=== PATIENT | male | born 1940 | race Two or more races ===

== ENCOUNTER 2018-10-25 12:29 | Inpatient (IN) ==
--- NOTE | 2018-10-25 14:50 | Progress Note ---
Addendum entered and electronically signed by RICHARD Kasper 10/25/18 15:01: Hold Xarelto for possible need for PPM or AICD placement. Original Note: Subjective Date: 10/25/18 Time: 14:46 Principal diagnosis: Pre-syncope Interval history: 78-year-old white male admitted from the office for recurrent cardiomyopathy with pre-syncope symptoms. Echocardiogram today showed ejection fraction of 20- 25%. Patient is known to have normal coronary arteries. Patient does relate progressive shortness of breath and lower cavity edema over the last few days. EKG today showed sinus bradycardia with ventricular ectopy. Exam - *Routine HEENT Exam Head: Present: normocephalic Eye: Present: EOMI, PERRL ENT: Present: mucous membranes moist - *Routine Respiratory Exam Present: decreased breath sounds. Absent: accessory muscle use, rales, rhonchi, wheezes - *Routine Cardiovascular Exam Present: RRR, bradycardia. Absent: murmur, gallop, rubs - *Routine Extremities Exam Present: edema. Absent: calf tenderness - *Routine Neurological Exam Present: alert, oriented X3, moving all extremities Progress Note: A&P (1) Nonischemic cardiomyopathy Status: Acute Current Visit: Yes (2) Acute decompensated heart failure Status: Acute Current Visit: Yes (3) Pre-syncope Status: Acute Current Visit: Yes (4) Ventricular ectopy Status: Acute Current Visit: Yes (5) SOB (shortness of breath) Status: Chronic Current Visit: No (6) Sinus bradycardia Status: Chronic Current Visit: No Assessment and Plan for All Diagnoses:: Patient is admitted for observation overnight with reinstitution of standard therapy for cardiology with decompensated congestive heart failure. Patient will be on telemetry to monitor for recurrent bradycardia and/or ventricular ectopy with possible consideration of AICD placement or pacemaker placement if needed. Patient's cardiomyopathy did improve in the past on combination of beta-terry and CAMILEL/ARB therapy, but due to symptomatic hypotension patient was discontinued on those medications and started on calcium channel terry for control of his history of atrial fibrillation. He continues on Xarelto therapy. Cardizem therapy will be discontinued at this time with reinstitution of Coreg and lisinopril.
--- NOTE | 2018-10-25 17:08 | Cardiology Report ---
INDICATIONS FOR THE TEST: Chest pain CA echo doppler complete PROCEDURE: 2-D M-mode and color Doppler study INDICATIONS FOR THE TEST: Chest pain COPD Heart Murmur Tobacco Smoking Palpitations Fatigue Syncope Edema+ Hypertension+Diabetes Mellitus Rheumatic Fever SOB MOLINA+Obesity Hyperlipidemia Family History HD Additional History Afib, MR PATIENT INFORMATION HEIGHT: 72 WEIGHT: 194 GENDER: Male B/P: 146/83 2-D/M-MODE INTERPRETATION: 2-D MEASUREMENTS OBSERVED VALUES IN CMS Right Ventricular Dimension (RVDd) 2.2 Interventricular Septum (Thickness)(IVsd) 1.1 Left Ventricular Internal Dimensions(LVIDd) 5.8 Left Ventricular Posterior Wall (Thickness)(LVPWd) 1.1 Aortic Root 3.1 Aortic Cusp Separation 2.0 Left Atrial Dimensions (LAD) 4.6 2D 1. Left atrium is moderately enlarged, left ventricle is mildly dilated, left ventricle wall thickness is upper limit of the normal, severely reduced left ventricular systolic function, visually estimated ejection fraction of 20-25%, left ventricle is globally hypokinetic. 2. The right atrium is moderately enlarged. Right ventricle is normal size and contractility. 3. The aortic valve is thickened and calcified leaflet continue to display mobility. 4. The mitral and tricuspid valve leaflets are minimally thickened. 5. The pulmonic valve is poorly present. 6. No significant pericardial effusion noted. DOPPLER INTERROGATION: Doppler interrogation of the aortic, mitral and tricuspid valvular presence of mild aortic, moderate mitral and moderate tricuspid regurgitation, calculated right ventricular systolic pressure is 45 mmHg consistent with moderate pulmonary hypertension. Diastolic parameters are inconclusive. CONCLUSION: 1. Moderate biatrial enlargement, dilated left ventricle, severely reduced left ventricular systolic function, visually estimated ejection fraction 20-25%, left ventricle is globally hypokinetic. Diastolic parameters are inconclusive. 2. Moderate mitral and tricuspid regurgitation, calculated right ventricular systolic pressure is 45 mmHg consistent with moderate pulmonary hypertension. Mild aortic insufficiency seen. 3. No significant pericardial effusion noted.
[2018-10-26 06:42] LABS: Anion Gap 9.9 mEq/L (5-15); Calcium 8.6 mg/dL (8.5-10.1); Potassium 3.9 mmoL/L (3.5-5.1)
--- NOTE | 2018-10-26 08:05 | Progress Note ---
Addendum entered and electronically signed by RICHARD Kasper 10/26/18 14:19: Loop recorder placed without complications. Pt could be discharged home today on the following cardiac meds: coreg 6.25 mg BID digoxin 0.125 mg daily lasix 40 mg daily spironolactone 25 mg daily lisinopril 2.5 mg daily Xarelto 15 mg daily Follow up with us on monday next week with BMP that morning. Original Note: Subjective Date: 10/26/18 Time: 08:03 Principal diagnosis: Pre-syncope Interval history: 78-year-old white male in bed in no distress. Denies any chest pain, pressure or tightness. Still with significant lower extremity edema. Review of telemetry shows multifocal PVCs with an single 6 beat run of ventricular tachycardia noted. Upon further questioning, the patient adamently denies any episodes of passing out or near syncope type symptoms. He relates claustrophobic anxiety when in the shower and in closets or close spaces. If he is able to get out of those areas and move, the symptoms resolve. Exam Vital signs and Labs for Last 24 Hours: Temp Pulse Resp BP Pulse Ox 98.8 F 83 16 118/65 95 10/26/18 04:00 10/26/18 04:00 10/26/18 04:00 10/26/18 04:00 10/26/18 04:00 Laboratory Results - last 24 hr 10/26/18 05:37: Sodium 146 H, Potassium 3.9, Chloride 108 H, Carbon Dioxide 32, Anion Gap 9.9, BUN 20 H, Creatinine 1.27, Estimated Creat Clear 61, Estimated GFR 55 L, Est GFR ( Amer) 67, Glucose 96, Calcium 8.6, Magnesium 1.9 I & O for Last 24 hours: Intake & Output 10/23/18 10/24/18 10/25/18 10/26/18 11:59 11:59 11:59 11:59 Intake Total 360 / 360 Output Total 1625 / 1625 Balance -1265 / -1265 Weight 191 lb 8 oz - *Routine HEENT Exam Head: Present: normocephalic Eye: Present: EOMI, PERRL ENT: Present: mucous membranes moist - *Routine Neck Exam Present: supple. Absent: JVD, carotid bruit - *Routine Respiratory Exam Present: CTA bilaterally. Absent: accessory muscle use, rales, rhonchi, wheezes - *Routine Cardiovascular Exam Present: RRR. Absent: murmur, gallop, rubs - *Routine Extremities Exam Present: edema. Absent: calf tenderness - *Routine Neurological Exam Present: alert, oriented X3, moving all extremities Progress Note: A&P (1) Nonischemic cardiomyopathy Status: Acute Current Visit: Yes (2) Acute decompensated heart failure Status: Acute Current Visit: Yes (3) Pre-syncope Status: Acute Current Visit: Yes (4) Ventricular ectopy Status: Acute Current Visit: Yes (5) SOB (shortness of breath) Status: Chronic Current Visit: No (6) Sinus bradycardia Status: Chronic Current Visit: No Assessment and Plan for All Diagnoses:: Pt is tolerating carvedilol and lisinopril therapy but still with muli-focal PVC's and non-sustained VTach. Discussed with Dr. James and EP Dairy Manager (Dr. Viet Guzman), with multi- focal PVC's and non-sustained VTach in a patient with a non-ischemic Cardiomyopathy and presumed pre-syncopal symptoms, it has been recommended to proceed with ICD implantation. HOWEVER, NOW THAT THE PATIENT HAS CLARIFIED HIS SYMPTOMS DUE TO ANXIETY AND CLAUSTROPHOBIC IN NATURE, WE WILL NOT PROCEED WITH ICD IMPLANT. INSTEAD WE WILL CONTINUE MEDICAL THERAPY AND IMPLANT A LOOP RECORDER TO MONITOR FOR ARRHYTHMIAS WHILE WAITING 90 DAYS TO SEE IF HIS CARDIOMYOPATHY IMPROVES. Pt understands and agrees to proceed with ILR placement today. He should be able to be discharged home later today.
--- NOTE | 2018-10-26 08:07 | Pharmacy Consult Notes ---
[facility] Pharmacy VTE Monitoring - Patient Demographics Admission date: 10/25/18 Report Date: 10/26/18 Time: 08:06 Allergies/Adverse Reactions: Patient Allergies codeine Allergy (Verified 10/25/18 10:23) spironolactone [From Aldactone] Allergy (Verified 10/25/18 10:23) gynecomastia Height: 1.88 m Weight: 86.863 kg Patient Problems: Current Active Problems Nonischemic cardiomyopathy (Acute) Acute decompensated heart failure (Acute) Pre-syncope (Acute) Ventricular ectopy (Acute) - VTE Risk Labs: VTE Related Lab Results BUN 20 mg/dL (7-18) H 10/26/18 05:37 Creatinine 1.27 mg/dL (0.70-1.30) 10/26/18 05:37 Estimated Creat Clear 61 mL/min (50-200) 10/26/18 05:37 Was VTE Risk Assessment Performed: Yes VTE Score: 1 VTE Risk Level: Very Low Risk Clinical Trial Participant: No - Prophylaxis VTE Prophylaxis Ordered?: Yes Types of VTE Prophylaxis: TEDS Knee High Location of Applied Device: Refused
--- NOTE | 2018-10-26 08:55 | History & Physical Report ---
*Admission Date: 10/25/18 *Chief complaint: Syncope *History of present illness: 78-year-old male admitted from the office for recurrent cardiomyopathy with pre- syncope symptoms for a few months but worsening. Echocardiogram today showed ejection fraction of 20-25%. Patient states progressive shortness of breath and lower extremity edema over the last few days. Patient admitted for cardiac workup. [facility] History I have reviewed the patient's past medical history: Yes Medical History: Reports:: Anxiety, Atrial Fibrillation, Congestive Heart Failure, Depression, Hyperlipidemia, Hypertension, Kidney Stones, Palpitations Denies:: Cancer, Diabetes Mellitus Type 1, Diabetes Mellitus Type 2, MRSA *Have you ever received a pneumonia vaccine?: Yes *Have you received a flu vaccine this season?: Yes Laterality Cases: Left: Total Hip Replacement, Bilateral: Arthroscopy Knee Other Surgeries: Yes: Angioplasty, Splenectomy Amputation: No Fractures: No - *Social History Educational Level: Completed College Smoking Status: Never smoker Alcohol Intake: never Alcohol Intake Frequency:: holidays/special occasions only Substance Use Type: denies use *Occupational Status:: retired, disabled Housing: house Household Members: spouse *Travel in the last 8 weeks: None - Psychiatric History Expresses thoughts of harming self/others: None Suicide Plan Description: No Plan Pschychiatric History:: Reports:: Anxiety, Depression Family Hx:: Diabetes Review of Systems - Review of Systems Review of systems:: pertinent systems reviewed and negative unless documented below - Constitutional Reports weakness, Denies body ache(s) - Eyes Denies change in vision - ENT Denies facial pain - *Cardiovascular Reports shortness of breath, Reports irregular heart rhythm, Reports foot swel ling, Denies chest pain with activity - *Respiratory Reports shortness of breath - *Gastrointestinal Denies nausea, Denies vomiting - *Genitourinary Denies urinary frequency - *Musculoskeletal Denies neck pain, Denies stiffness - Integumentary/Breasts Denies rash - *Neurologic Reports dizziness, Reports weakness - Psychiatric Denies anxiety - Endocrine Denies flushing - Hematologic/Lymphatic Denies enlarged lymph nodes - Allergic/Immunologic Denies lip swelling Meds Home Medications Medication Instructions Recorded Confirmed Type lorazepam 1 mg tablet 1 mg PO HSP PRN 01/03/18 10/26/18 History Carvedilol [Carvedilol 6.25mg Tab] 6.25 mg PO BID 10/25/18 10/25/18 History Digoxin 125 mcg PO DAILY 10/25/18 10/26/18 History Lisinopril [Lisinopril 2.5mg Tab] 2.5 mg PO DAILY 10/25/18 10/25/18 History Rivaroxaban [Xarelto] 15 mg PO BID 10/25/18 10/25/18 History bupropion HCl 75 mg tablet 75 mg PO DAILY tab 10/25/18 10/25/18 History duloxetine 60 mg capsule,delayed 60 mg PO DAILY cap 10/25/18 10/25/18 History release furosemide 40 mg tablet 40 mg PO DAILY 10/25/18 10/26/18 History olanzapine 2.5 mg tablet 1.25 mg PO HS tab 10/25/18 10/26/18 History Allopurinol [Allopurinol 300mg 300 mg PO DAILY 10/26/18 10/26/18 History tablet] Tamsulosin HCl [Flomax 0.4mg 0.4 mg PO DAILY 10/26/18 10/26/18 History capsule] Allergies Allergy/AdvReac Type Severity Reaction Status Date / Time codeine Allergy Verified 10/25/18 10:23 spironolactone Allergy gynecomasti Verified 10/25/18 10:23 [From Aldactone] a Exam Vital signs and Labs for Last 24 Hours: Temp Pulse Resp BP Pulse Ox 98.7 F 70 16 144/68 H 95 10/26/18 08:00 10/26/18 08:00 10/26/18 08:00 10/26/18 08:00 10/26/18 08:00 Laboratory Results - last 24 hr 10/26/18 05:37: Sodium 146 H, Potassium 3.9, Chloride 108 H, Carbon Dioxide 32, Anion Gap 9.9, BUN 20 H, Creatinine 1.27, Estimated Creat Clear 61, Estimated GFR 55 L, Est GFR ( Amer) 67, Glucose 96, Calcium 8.6, Magnesium 1.9 I & O for Last 24 hours: Intake & Output 10/23/18 10/24/18 10/25/18 10/26/18 11:59 11:59 11:59 11:59 Intake Total 360 / 360 Output Total 1625 / 1625 Balance -1265 / -1265 Weight 191 lb 8 oz - Constitutional no acute distress - *Routine HEENT Exam Head: Present: normocephalic Eye: Present: EOMI, PERRL ENT: Present: mucous membranes moist - *Routine Neck Exam Present: supple. Absent: lymphadenopathy - *Routine Respiratory Exam Present: CTA bilaterally - *Routine Cardiovascular Exam Present: irregular rhythm - *Routine Abdominal Exam Present: soft, normoactive bowel sounds. Absent: tenderness - *Routine Extremities Exam Absent: cyanosis, clubbing, edema - *Routine Skin Exam Present: warm. Absent: rash - *Routine Neurological Exam Present: alert, oriented X3 - Routine Psychiatric Exam Present: normal affect Assessment and Plan (1) Nonischemic cardiomyopathy Current visit: Yes Status: Acute Category: Medical Code(s): I42.8 - Other cardiomyopathies (2) Acute decompensated heart failure Current visit: Yes Status: Acute Category: Medical Code(s): I50.9 - Heart failure, unspecified (3) Pre-syncope Current visit: Yes Status: Acute Category: Medical Code(s): R55 - Syncope and collapse (4) Ventricular ectopy Current visit: Yes Status: Acute Category: Medical Code(s): I49.3 - Ventricular premature depolarization (5) SOB (shortness of breath) Current visit: No Status: Chronic Category: Medical Code(s): R06.02 - Shortness of breath (6) Sinus bradycardia Current visit: No Status: Chronic Category: Medical Code(s): R00.1 - Bradycardia, unspecified - Assessment and plan all Dx Assessment and Plan for all problems:: Rounded with Dr. Mckenzie all orders per Magaly
--- NOTE | 2018-10-26 14:18 | Procedure Note ---
[facility] Loop Recorder Date: 10/26/18 Time: 14:13 Procedure Performed:: Implantable loop recorder placement Indication:: Cardiomyopathy Ventricular arrhythmias Technique:: After informed consent obtained, patient's left upper chest/pectoral area was prepped and draped in sterile fasion. Lidocaine 1% was used for local anesthesia and an incision was made using the preformed scalpel. The preloaded apparatus was used to insert the loop recorder and after confirming the voltage was adequate for detection, the incision was closed with steri-strips and pressure dressing and tegaderm placed. Patient tolerated the procedure without complications. Impression:: Successful placement of loop recorder Serial Number:: [id number] Plan:: Routine post op care
--- NOTE | 2018-10-26 17:29 | Discharge Summary ---
General - General Admission date:: 10/25/18 Discharge date: 10/26/18 HPI HPI: 78-year-old male admitted from the office for recurrent cardiomyopathy with pre- syncope symptoms for a few months but worsening. Echocardiogram today showed ejection fraction of 20-25%. Patient states progressive shortness of breath and lower extremity edema over the last few days. Patient admitted for cardiac workup. Hospital Course Hospital Course: echo:CONCLUSION: 1. Moderate biatrial enlargement, dilated left ventricle, severely reduced left ventricular systolic function, visually estimated ejection fraction 20-25%, left ventricle is globally hypokinetic. Diastolic parameters are inconclusive. 2. Moderate mitral and tricuspid regurgitation, calculated right ventricular systolic pressure is 45 mmHg consistent with moderate pulmonary hypertension. Mild aortic insufficiency seen. 3. No significant pericardial effusion noted. loop recorder, cardiology consult Objective Vital signs: Temp Pulse Resp BP Pulse Ox 98.2 F 61 18 149/83 H 99 10/26/18 15:55 10/26/18 15:55 10/26/18 15:55 10/26/18 15:55 10/26/18 15:55 no acute distress - *Routine HEENT Exam Head: Present: normocephalic Eye: Present: PERRL ENT: Present: mucous membranes moist - *Routine Respiratory Exam Present: CTA bilaterally - *Routine Cardiovascular Exam Present: irregular rhythm - *Routine Abdominal Exam Present: soft, normoactive bowel sounds - *Routine Extremities Exam Present: full ROM - *Routine Skin Exam Present: intact - *Routine Neurological Exam Present: alert, oriented X3 - Routine Psychiatric Exam Present: normal affect Results Labs on day of discharge: Labs from last 24 hours 10/26/18 05:37 Sodium 146 H Potassium 3.9 Chloride 108 H Carbon Dioxide 32 Anion Gap 9.9 BUN 20 H Creatinine 1.27 Estimated Creat Clear 61 Estimated GFR 55 L Est GFR ( Amer) 67 Glucose 96 Calcium 8.6 Magnesium 1.9 - Additional Comments rounded with jace all orders per jace DS: Diagnosis - Discharge Diagnosis (1) Nonischemic cardiomyopathy Status: Acute (2) Acute decompensated heart failure Status: Acute (3) Pre-syncope Status: Acute (4) Ventricular ectopy Status: Acute (5) SOB (shortness of breath) Status: Chronic (6) Sinus bradycardia Status: Chronic Discharge Plan - Patient Discharge Instructions ACTIVITY: Continue current activity DIET: continue same diet Patient Instructions: DI for Syncope in Adults (Fainting), DI for Cardiomyopathy - Follow up Plan Follow up with: Merritt James MD [Staff Physician] - 1 week Disposition: Home, Self-Usp Medications: Home Medications Medication Instructions Recorded Confirmed Type lorazepam 1 mg tablet 1 mg PO BID 01/03/18 10/26/18 History Digoxin 125 mcg PO DAILY 10/25/18 10/26/18 History Rivaroxaban [Xarelto] 15 mg PO HS 10/25/18 10/26/18 History duloxetine 60 mg capsule,delayed 60 mg PO BID cap 10/25/18 10/26/18 History release furosemide 40 mg tablet 40 mg PO DAILY 10/25/18 10/26/18 History Albuterol Sulfate [Albuterol HFA 2 puffs IH Q6HP PRN 10/26/18 10/26/18 History Inhaler] Allopurinol [Allopurinol 300mg 300 mg PO DAILY 10/26/18 10/26/18 History tablet] Carvedilol [Carvedilol 6.25mg Tab] 6.25 mg PO BID 10/26/18 10/26/18 History Carvedilol [Coreg 6.25mg 6.25 mg PO BID 30 Days #30 tablet 10/26/18 Rx Tablet] Digoxin [Digoxin 0.125mg Tablet] 125 mcg PO DAILY 30 Days #30 tablet 10/26/18 Rx Fluticasone Propionate 1 spray NOSTRIL-B BID 10/26/18 10/26/18 History Lisinopril [Lisinopril 2.5mg Tab] 2.5 mg PO DAILY 10/26/18 10/26/18 History Lisinopril [Zestril 2.5mg Tablet] 2.5 mg PO DAILY 30 Days #30 tablet 10/26/18 Rx Mirtazapine 30 mg PO HS 10/26/18 10/26/18 History OLANZapine [Olanzapine] 1.25 mg PO BID 10/26/18 10/26/18 History OLANZapine [Olanzapine] 5 mg PO HS 10/26/18 10/26/18 History Tamsulosin HCl [Flomax 0.4mg 0.4 mg PO DAILY 10/26/18 10/26/18 History capsule] buPROPion HCl [Wellbutrin 75mg 75 mg PO DAILY 10/26/18 10/26/18 History Tablet] risperiDONE [Risperdal 1mg Tablet] 1 mg PO HS 10/26/18 10/26/18 History risperiDONE [Risperidone] 0.5 mg PO BID 10/26/18 10/26/18 History Prescriptions/Medication Reconciliation: New Duloxetine HCl [Cymbalta 30mg capsule] 60 mg PO BID capsule. Mirtazapine [Remeron 15mg tablet] 30 mg PO HS tablet OLANZapine [Zyprexa 5mg tablet] 1.25 mg PO BID tablet OLANZapine [Zyprexa 5mg tablet] 5 mg PO HS tablet risperiDONE [Risperdal 1mg Tablet] 1 mg PO HS tablet risperiDONE [Risperdal 0.5mg tablet] 0.5 mg PO BID tablet Rivaroxaban [Xarelto 15mg tablet] 15 mg PO QPMWM tablet Spironolactone [Aldactone 25mg Tab] 25 mg PO DAILY tablet Carvedilol [Coreg 6.25mg Tablet] 6.25 mg PO BID 30 Days #30 tablet Digoxin [Digoxin 0.125mg Tablet] 125 mcg PO DAILY 30 Days #30 tablet Lisinopril [Zestril 2.5mg Tablet] 2.5 mg PO DAILY 30 Days #30 tablet LORazepam [Ativan 1mg tablet] 1 mg PO BID tablet Tamsulosin HCl [Flomax 0.4mg capsule] 0.4 mg PO HS cap.er.24h Continue duloxetine 60 mg capsule,delayed release 60 mg PO BID cap lorazepam 1 mg tablet 1 mg PO BID furosemide 40 mg tablet 40 mg PO DAILY Digoxin 125 mcg PO DAILY Tamsulosin HCl [Flomax 0.4mg capsule] 0.4 mg PO DAILY risperiDONE [Risperidone] 0.5 mg PO BID buPROPion HCl [Wellbutrin 75mg Tablet] 75 mg PO DAILY OLANZapine [Olanzapine] 1.25 mg PO BID Albuterol Sulfate [Albuterol HFA Inhaler] 2 puffs IH Q6HP PRN PRN Reason: Shortness Of Breath Mirtazapine 30 mg PO HS Fluticasone Propionate 1 spray NOSTRIL-B BID Lisinopril [Lisinopril 2.5mg Tab] 2.5 mg PO DAILY Rivaroxaban [Xarelto] 15 mg PO HS Allopurinol [Allopurinol 300mg tablet] 300 mg PO DAILY risperiDONE [Risperdal 1mg Tablet] 1 mg PO HS OLANZapine [Olanzapine] 5 mg PO HS Carvedilol [Carvedilol 6.25mg Tab] 6.25 mg PO BID
== END 2018-10-26 17:50 | disposition home or self-care (01) | DRG 260 ==
LOC: RT 12:29 → 2ND 12:29 → OBSVTOIN 14:41
PROVIDERS: ADMIT Emergency Medicine; ATTEND Emergency Medicine

== ENCOUNTER → 2018-12-05 13:29 | Outpatient (CLI) | payer MEDICARE, SELFPAY ==
--- NOTE | 2018-12-05 13:39 | CT_ITS ---
CT head/brain wo con HISTORY: Confusion, altered mental status, altered level consciousness ITS.REASON: rule out normal pressure hydrocephaus ORDERING PHYSICIAN: Andreina Grady PATIENT AGE: 78 years COMPARISON: None TECHNIQUE: Axial images obtained without contrast. Brain and bone windows reviewed. All CT scans at the facility use one or more dose reduction, viz: automated exposure control, ma/kV adjustment per patient size (including targeted exams where dose is matched to indication, i.e. head), or iterative reconstruction technique. FINDINGS: There is generalized atrophy. No ventriculomegaly. No intracranial hemorrhage midline shift or mass effect. There is mild prominence of the subdural space in the right frontal and temporal region suggesting a small subdural hygroma. No acute subdural hemorrhage is evident. No midline shift. No acute calvarial findings. Postsurgical changes of the left occipital bone from prior craniectomy with metallic mesh in place. IMPRESSION: 1. No acute intracranial findings. 2. No evidence of normal pressure hydrocephalus. 3. Mild prominence of the subdural space in the right frontal and temporal region could relate to a small subdural hygroma without mass effect. Subdural space at this region measures approximately 8 mm.
[2018-12-09 18:29] LABS: Vitamin B1 190.6 nmol/L (66.5-200.0)
== END ==
PROVIDERS: PCP Family Medicine; Visit Provider Nurse Practitioner Family
DX: R26.89 Other abnormalities of gait and mobility (principal); R41.0 Disorientation, unspecified; Z87.898 Personal history of other specified conditions; F41.9 Anxiety disorder, unspecified
CPT/HCPCS: 36415; 70450; 84425

== ENCOUNTER → 2019-01-24 10:59 | Outpatient (CLI) | payer MEDICARE, SELFPAY ==
--- NOTE | 2019-01-24 11:05 | CA_ITS ---
PROCEDURE: 2-D M-mode and color Doppler study INDICATIONS FOR THE TEST: Chest pain COPD Heart Murmur Tobacco Smoking Palpitations Fatigue+ Syncope Edema Hypertension+Diabetes Mellitus Rheumatic Fever SOB+MOLINA+Obesity Hyperlipidemia Family History HD Additional History DIZZINESS, CHF, AF, PHTN, EF 20-25% 10/25/18 PATIENT INFORMATION HEIGHT:72 WEIGHT:178 GENDER: Male B/P:109/59 2-D/M-MODE INTERPRETATION: 2-D MEASUREMENTS OBSERVED VALUES IN CMS Right Ventricular Dimension (RVDd) 3.1 Interventricular Septum (Thickness)(IVsd) 1.0 Left Ventricular Internal Dimensions(LVIDd) 5.4 Left Ventricular Posterior Wall (Thickness)(LVPWd) 0.9 Aortic Root 3.5 Aortic Cusp Separation 1.7 Left Atrial Dimensions (LAD) 4.1 2D 1. Left atrium is mildly enlarged, left ventricle is mildly dilated, there is mild concentric left ventricular hypertrophy, severely reduced left ventricular systolic function, visually estimated ejection fraction approximately 20%, left ventricle appears to be globally hypokinetic in this study, however superimposed segmental wall motion abnormality cannot be excluded. 2. The right atrium and right ventricle are moderately enlarged with normal contractility. 3. The aortic valve is thickened and calcified leaflet continue to display mobility. 4. The mitral and tricuspid valve leaflets are minimally thickened. 5. The pulmonic valve is poorly present. 6. No significant pericardial effusion noted. DOPPLER INTERROGATION: Doppler interrogation of the aortic, mitral and tricuspid valvular presence of moderate mitral and mild tricuspid regurgitation, calculated right ventricular systolic pressure 34 mmHg, inferior vena cava is not well visualized, diastolic parameters are inconclusive, there is mild aortic insufficiency also seen. The aortic outflow velocities is reduced, suggestive of low cardiac output state. CONCLUSION: 1. Biatrial enlargement, dilated left ventricle, severely reduced left ventricular systolic function, visually estimated ejection fraction 20%, left ventricle is globally hypokinetic, superimposed segmental wall motion abnormality cannot be entirely excluded. Diastolic parameters are inconclusive. 2. Enlarged right ventricle with normal contractility. 3. Mild aortic, moderate mitral and tricuspid regurgitation, calculated right ventricular systolic pressure 34 mmHg, inferior vena cava is not well visualized 4. No significant pericardial effusion noted.
== END ==
PROVIDERS: Visit Provider Internal Medicine
DX: I42.8 Other cardiomyopathies; I42.0 Dilated cardiomyopathy; I48.0 Paroxysmal atrial fibrillation; I11.0 Hypertensive heart disease with heart failure; I27.20 Pulmonary hypertension, unspecified; I34.0 Nonrheumatic mitral (valve) insufficiency; I49.1 Atrial premature depolarization; I49.3 Ventricular premature depolarization; I50.23 Acute on chronic systolic (congestive) heart failure; R00.0 Tachycardia, unspecified; R06.02 Shortness of breath; R42 Dizziness and giddiness; R55 Syncope and collapse; R60.0 Localized edema; R94.31 Abnormal electrocardiogram [ECG] [EKG]; G47.33 Obstructive sleep apnea (adult) (pediatric)
CPT/HCPCS: 93306

== ENCOUNTER → 2019-06-04 10:33 | Outpatient (CLI) | payer MEDICARE, SELFPAY ==
[2019-06-04 13:58] LABS: Anion Gap 16.3 mEq/L (5-15); Blood Urea Nitrogen 14 mg/dL (7-18); Calcium 8.9 mg/dL (8.5-10.1); Carbon Dioxide 28 mmol/L (21.0-32.0); Chloride 103 mmol/L (98-107); Creatinine,Serum 1.59 mg/dL (0.70-1.30); Estimated Glomerular Filt Rate 43 ml/min (>60); GFR (African American) 51 ML/MIN (>60); Glucose 127 mg/dL (74-106); Sodium 143 mmol/L (136-145)
[2019-06-04 14:08] LABS: Potassium 4.3 mmoL/L (3.5-5.1)
== END ==
PROVIDERS: Visit Provider Physician Assistant
DX: E87.6 Hypokalemia (principal)
CPT/HCPCS: 36415; 80048

== ENCOUNTER → 2019-07-17 10:37 | Outpatient (CLI) | payer MEDICARE, SELFPAY ==
--- NOTE | 2019-07-17 10:41 | CA_ITS ---
APPROVED REPORT EXAM: Comprehensive 2D, Doppler, and color-flow Echocardiogram Gallery Intern: Monique Zavaleta RVT Ht: 5 ft 3 in Wt: 167lbs BSA: 1.79 BP: 88/75 mmHg Indications: CM,A-fib,Pul HTN,Dizziness, Syncope,AICD,EF of 20% on 01/24/19 2D Dimensions IVSd 1.33 cm M: 0.6-1.2 LVEF (Visual) 21.60 % PWd 0.73 cm M: 0.6 - 1.2 LVDd 6.69 cm M: 4.2 - 5.9 LVDs 6.01 cm M: 2.5 - 4.0 LVOT 2.07 cm (M/F) 1.5-2.5 M-Mode Dimensions LA Diam 3.40 cm (1.9-4.0) LVDd 6.69 cm (3.5-5.7) Ao Diam 3.20 cm (2.0-3.7) LVDs 5.77 cm (3.5-5.7) AV Cusp 1.20 cm (1.5-2.6) IVSd 1.13 cm (0.6-1.1) PWd 0.84 cm (0.6-1.1) EF (Teich) 31.40% FS 13.60% EDV (Teich) 240.00 mL ESV (Teich) 164.60 mL Left Ventricle Left atrium is mildly enlarged, left ventricle is mildly dilated, mild concentric left ventricular hypertrophy, severely reduced left ventricular systolic function, visually estimated ejection fraction approximately 20%, left ventricle is globally hypokinetic. There is abnormal septal motion. No Doppler performed Right Ventricle Right atrium and right ventricle mildly enlarged with normal contractility, there is an AICD lead seen right ventricle. Aortic Valve Aortic valve is thickened and calcified leaflet on a display mobility. Mitral Valve Mitral valve leaflets are minimally thickened. Tricuspid Valve Tricuspid valve is grossly normal. Pulmonic Valve Pulmonic valve is poorly visualized. Great Vessels Aortic root is normal size. Pericardium No significant pericardial effusion noted. Conclusion 1. Limited study performed, there is no color flow mapping or spectral Doppler performed. 2. Enlarged left atrium, dilated left ventricle, severely reduced left ventricular systolic function, visually estimated ejection fraction 20%, left ventricle is globally hypokinetic. 3. No significant pericardial effusion noted. Electronically signed by : Sathya Loya, 07/19/2019 13:53:53
== END ==
PROVIDERS: PCP Family Medicine; Visit Provider Internal Medicine
DX: I34.0 Nonrheumatic mitral (valve) insufficiency; I11.0 Hypertensive heart disease with heart failure; I27.20 Pulmonary hypertension, unspecified; I42.0 Dilated cardiomyopathy; I42.8 Other cardiomyopathies; I50.22 Chronic systolic (congestive) heart failure; R06.02 Shortness of breath; R42 Dizziness and giddiness; R94.31 Abnormal electrocardiogram [ECG] [EKG]; G47.33 Obstructive sleep apnea (adult) (pediatric)
CPT/HCPCS: 93308

== ENCOUNTER → 2020-05-19 10:59 | Outpatient (CLI) | payer MEDICARE, SELFPAY ==
--- NOTE | 2020-05-19 11:05 | CA_ITS ---
APPROVED REPORT EXAM: Comprehensive 2D, Doppler, and color-flow Echocardiogram Terminal Clerk: Gypsy Mcdermott CRT Ht: 6 ft 0 in Wt: 174lbs BSA: 2.01 BP: 103/56 mmHg Indications: Atrial Fibrillation, Cardiomyopathy, Hypertension/HDD 2D Dimensions LVOT 1.76 cm (M/F) 1.5-2.5 M-Mode Dimensions RVDd 3.17 cm (0.9-2.6) LVDd 5.47 cm (3.5-5.7) LVDs 4.90 cm (3.5-5.7) IVSd 1.58 cm (0.6-1.1) PWd 0.80 cm (0.6-1.1) EF (Teich) 22.50% FS 10.40% EDV (Teich) 145.60 mL ESV (Teich) 112.80 mL LV Diastology E/A Ratio 0.66 Mitral Valve MV A Velocity 83.00 (40-130 cm/s) Left Ventricle Left atrium is mildly enlarged, left ventricle is normal size, mild concentric left ventricular hypertrophy, visually estimated ejection fraction 50% with no regional wall motion abnormality, endocardial surfaces are very poorly visualized, grade 1 diastolic dysfunction seen with tissue Doppler evidence of raise left atrial pressure. Right Ventricle Right atrium and right ventricle are mildly enlarged with normal contractility, there is pacemaker or an AICD lead seen in right ventricle. Aortic Valve Aortic valve is minimally thickened and fibrosed, there is no aortic stenosis, there is trace aortic insufficiency. Mitral Valve Mitral valve is minimally thickened, there is mild mitral regurgitation. Tricuspid Valve Tricuspid valve is grossly normal, there is mild tricuspid regurgitation, tricuspid regurgitation jet velocity is inadequate for calculation of the right ventricular systolic pressure. Pulmonic Valve Pulmonic valve is poorly visualized. Great Vessels Aortic root is normal size. Pericardium No significant pericardial effusion noted. Conclusion 1. Biatrial enlargement, normal left ventricular size, mild concentric left ventricular hypertrophy, visually estimated ejection fraction 50% with no regional wall motion abnormality, grade 1 diastolic dysfunction seen with tissue Doppler evidence of raise left atrial pressure. 2. Mildly enlarged right ventricle with normal contractility. 3. Thickened and calcified aortic valve without aortic stenosis, there is trace aortic insufficiency. 4. Mild mitral and tricuspid regurgitation. 5. No significant pericardial effusion noted. Electronically signed by : Sathya Loya, 05/19/2020 18:32:13
== END ==
PROVIDERS: PCP Family Medicine; Visit Provider Internal Medicine
DX: G47.33 Obstructive sleep apnea (adult) (pediatric) (principal); I11.9 Hypertensive heart disease without heart failure; I27.20 Pulmonary hypertension, unspecified; I34.0 Nonrheumatic mitral (valve) insufficiency; I42.9 Cardiomyopathy, unspecified; I48.91 Unspecified atrial fibrillation; I50.20 Unspecified systolic (congestive) heart failure; Z95.810 Presence of automatic (implantable) cardiac defibrillator
CPT/HCPCS: 93306

== ENCOUNTER 2022-04-01 08:48 | Day surgery (SDC) | payer MEDICARE, SELFPAY ==
[2022-04-01] VITALS (11 sets, daily range): BP systolic 90–141; BP diastolic 60–92; PULSE 64–80; RESP 10–18; TEMP 36.2–43; O2SAT 91–99; BMI 24.3; BMI 25.0
[2022-04-01 09:36] LABS: Microscopic, Urine URINE MICROSCOPIC (MICROSCOPIC)
[2022-04-01 09:36] LABS: Basophils # 0.1 K/mm3 (0-0.2); Basophils % 0.9 % (0.1-2.0); Eosinophils # 0.2 K/mm3 (0.0-0.4); Eosinophils % 2.6 % (0.1-12.0); Hemoglobin 14.9 g/dL (14.1-18.0); Lymphocytes # 2.2 K/mm3 (0.7-4.5); Lymphocytes % 25.3 % (10-50); Mean Corpuscular Hemoglobin 33.3 pg (27.0-31.2); Mean Corpuscular Volume 100.8 fl (80-94); Mean Platelet Volume 8.2 fl (7.4-10.4); Monocytes # 0.8 K/mm3 (0.1-1.0); Monocytes % 8.5 % (1.7-9.3); Neutrophils # 5.6 K/mm3 (1.8-7.8); Neutrophils % 62.7 % (37.0-80.0); Platelet Count 251 K/mm3 (142-424); Red Blood Count 4.47 M/mm3 (4.60-6.20); Red Cell Distribution Width 12.8 % (11.5-17.5); White Blood Count 8.9 K/mm3 (4.8-10.8)
[2022-04-01 09:38] LABS: Chloride 107 mmol/L (98-107)
[2022-04-01 09:39] LABS: Potassium 3.5 mmoL/L (3.5-5.1); Sodium 142 mmol/L (136-145)
[2022-04-01 09:39] LABS: Appearance,Urine CLEAR (Clear); Bilirubin,Urine Negative (Negative); Blood, Urine Negative (Negative); Color,Urine YELLOW (Yellow); Glucose,Urine (UA) Negative (Negative); Ketones,Urine Negative (Negative); Leukocyte Esterase,Urine TRACE (Negative); Nitrate,Urine Negative (Negative); Protein,Urine Negative (Negative); Specific Gravity, Urine 1.025 (1.005-1.030); Urobilinogen,Urine 0.2 EU/dl (0.2)
[2022-04-01 09:41] LABS: Blood Urea Nitrogen 15 mg/dl (9-20); Creatinine Clearance Estimated 56 mL/min (50-200); Estimated Glomerular Filt Rate 53 ml/min (>60); GFR (African American) 64 ML/MIN (>60)
[2022-04-01 09:42] LABS: Anion Gap 8.5 mEq/L (5-15); Calcium 8.9 mg/dl (8.4-10.2); Carbon Dioxide 30 mmol/L (22.0-30.0); Glucose 109 mg/dl (74-100)
[2022-04-01 09:51] LABS: Bacteria,Urine Trace /lpf; Squamous Epithelial Cell,Urine Occasional #/hpf (0-5)
[2022-04-01 09:52] LABS: Hyaline Casts,Urine Occasional #/lpf (0)
--- NOTE | 2022-04-01 11:24 | P.PN_ITS ---
[facility] Anesthesia Checklist - Structural Data Admitted From: Home Planned Operative Procedure/s: cystolithopaxy Consent for Planned Operative Procedure(s) Verified: Yes - Additional verifications Anesthesia Reactions: No Hx Blood Transfusions: No Blood Transfusion Reaction: No - Airway Assessment C-Spine Mobility Assessed: Yes TMJ Mobility Assessed: Yes Dentition: Poor Dentition - Neurological Assessment Level of Consciousness: Awake, Alert, Appropriate - Anesthesia Plan Anesthesia Risk discussed: Yes Anesthesia Plan: Verified ASA Class: III Anesthesia Type: General [facility] History I have reviewed the patient's past medical history: Yes Medical History: Reports:: Anxiety, Atrial Fibrillation, Congestive Heart Failure, Depression, Hyperlipidemia, Hypertension, Internal Pacemaker, Kidney Stones, Palpitations Denies:: Cancer, Diabetes Mellitus Type 1, Diabetes Mellitus Type 2, MRSA, Seizures *Have you ever received a pneumonia vaccine?: No *Have you received a flu vaccine this season?: No Other Medical History: Denies: Blood Transfusion Reaction Anesthesia experience/problems:: none Laterality Cases: Left: ACL Repair, Total Hip Replacement, Bilateral: Arthroscopy Knee Other Surgeries: Yes: No Previous Surgery, Angioplasty, Cardiac Catheterization, Pacemaker, Splenectomy Amputation: No Fractures: No - *Social History Last grade of school completed: Some college Smoking Status: Never smoker Alcohol Intake: never Alcohol Intake Frequency:: holidays/special occasions only Substance Use Type: denies use *Occupational Status:: retired Housing: house Household Members: spouse *Travel in the last 8 weeks: None - Psychiatric History Pschychiatric History:: Reports:: Anxiety, Depression Family Hx:: Diabetes
--- NOTE | 2022-04-01 12:01 | HMH.ANESI ---
[facility] Anesthesia Record Part I Intake, IV Amount: 1,400 Estimated blood loss (mL): 0 Urine output (mL): 0 Blood Pressure: 90/60 SaO2: 94 Pulse Rate: 71 Respiratory Rate: 10 Temperature: 97.1 F Patient is:: Awake, Stable Stable to PACU at:: 12:00
--- NOTE | 2022-04-01 13:12 | PC.NURSE ---
1228-detailed report given to DAVONTE Santana 1230-pt transported to post op via stretcher w/tricia rails up and left in care of DAVONTE Santana with bed locked in lowest position, vss, pt stable
--- NOTE | 2022-04-01 16:28 | HMH.OPNOTE ---
Date of procedure: 04/01/22 Pre-op Diagnosis:: Two centimeter bladder stone Post-op Diagnosis:: Two centimeter demetrius stone in the bladder, large median lobe. Procedure performed:: Cystoscopy with the backseat with the laser lithotripsy. Surgeon:: Rylan Rothman MD REFERENCE INVESTIGATOR:: Manuel Napier Anesthesia: LMA Estimated blood loss (mL): 0 Clinical Note:: Patient is a 81-year-old white male with recent gross hematuria noted to have a 2 cm bladder stone and prostate enlargement. He presents today for urologic management. Operative findings:: 2 cm demetrius stone noted in the bladder. The prostate showed a very large median lobe. Operative note:: Patient taken to the operating room after informed consent was obtained. Was placed on the operating table in supine position and general anesthesia administered. Preoperative antibiotics and sequential compression devices placed. He was then placed into the dorsal lithotomy position and prepped draped in the standard surgical fashion. 20 Jnoes passed into the urethra and into the bladder. A 2 cm demetrius stone was noted in the bladder. Prostate was enlarged with a very large median lobe. A 500 nm laser fiber was passed through the cystoscope and the bladder stone fragmented into small pieces. The smaller of these fragments could be irrigated free the larger fragments were picked out with the rigid graspers. All stones were removed. There was a little bleeding from the median lobe afterwards and the Bugbee electrode was used to cauterize any bleeding. Patient tolerated procedure well no complications. Condition: stable Disposition: PACU Specimens:: Bladder stone Complications:: None
[2022-04-04 06:52] VITALS: BP 131/88; PULSE 75; TEMP 36.4
--- NOTE | 2022-04-04 06:52 | HMH.ANESII ---
[facility] Anesthesia Record Part II Discharge Time: 12:30 Destination: Surgical Day Care (OP Surgery) PACU nurse assessment reviewed?: Yes Patient Condition:: Good Anesthesia Complications:: None Swallowing reflex intact?: Yes Cyanosis?: No Blood Pressure: 131/88 Pulse Rate: 75 Temperature: 97.6 F Mental Status: Alert & Oriented Pain level:: 0 Nausea and/or vomitting:: None Intake, IV Amount: 0
[2022-04-15 23:05] LABS: Specimen Type Not Provided
== END 2022-04-01 13:15 | disposition home or self-care (01) ==
LOC: OR 08:50
PROVIDERS: PCP Family Medicine; Visit Provider Urology
PROC: 0TJB8ZZ Inspection of Bladder, Via Natural or Artificial Opening Endoscopic (ICD-10-PCS; CPT 52000; principal; 2022-04-01 10:30)
DX: N21.0 Calculus in bladder (principal); I11.0 Hypertensive heart disease with heart failure; I50.9 Heart failure, unspecified; I48.91 Unspecified atrial fibrillation; E78.5 Hyperlipidemia, unspecified; F41.9 Anxiety disorder, unspecified; F32.A Depression, unspecified; Z79.899 Other long term (current) drug therapy; R31.0 Gross hematuria
CPT/HCPCS: 52317; 80048; 81001; 82370; 85025; J2405

== ENCOUNTER → 2022-10-18 13:04 | Outpatient (CLI) | payer MEDICARE, SELFPAY ==
--- NOTE | 2022-10-18 13:06 | CA_ITS ---
APPROVED REPORT EXAM: Comprehensive 2D, Doppler, and color-flow Echocardiogram Density Control Puncher: Swati Huertas RT(R) Ht: 6 ft 2 in Wt: 188lbs BSA: 2.12 BP: 101/62 mmHg Indications: SOB, AICD, AFIB, KACEY, CM 2D Dimensions LVOT 1.89 cm (M/F) 1.5-2.5 LA Volume 76.20 mL LA Volume Index 35.94 mL/m2 (M/F) 16-34 M-Mode Dimensions RVDd 1.79 cm (0.9-2.6) LA Diam 3.52 cm (1.9-4.0) LVDd 5.44 cm (3.5-5.7) Ao Diam 2.83 cm (2.0-3.7) LVDs 4.44 cm (3.5-5.7) IVSd 0.91 cm (0.6-1.1) PWd 0.86 cm (0.6-1.1) EF (Teich) 37.60% FS 18.40% EDV (Teich) 143.70 mL ESV (Teich) 89.60 mL LV Diastology E Decel Time 213.00 (160-240 msec) E/A Ratio 0.9 MED E' 5.30 (< 7 cm/sec) E'/MED E' Ratio 13.68 (>14) LAT E' 5.70 (<10 cm/sec) E/LAT E' Ratio 12.72 (>14) Mitral Valve MV E Max Jerry. 73.00 (40-130 cm/s) MV A Velocity 82.00 (40-130 cm/s) E/A Ratio 0.88 MV Decel. Time 213.00 (160-240 ms) MV PHT 62.00 ms Tricuspid Valve TR P. Velocity 258.00 cm/s RAP Estimate 10.00 mmHg RVSP 36.60 mmHg Left Ventricle Left atrium is mildly enlarged, ventricular normal size mild concentric left ventricular hypertrophy, estimated ejection fraction is 45%, there is marked hypokinesis involving the basal septum and inferior wall. Diastolic parameters are inconclusive. Right Ventricle Right atrium and right ventricular normal size and contractility, there is any ICD leads in the right ventricle. Aortic Valve Aortic valve is thickened and calcified without Doppler evidence of aortic stenosis or significant aortic insufficiency. Mitral Valve Mitral valve is minimally thickened, there is mild mitral regurgitation. Tricuspid Valve Tricuspid grossly normal, there is mild tricuspid regurgitation, tricuspid regurgitation jet procedure inadequate for calculation of the right ventricular systolic pressure. Pulmonic Valve Pulmonic valve is poorly visualized. Great Vessels Aortic root is normal size. Inferior vena cava is poorly visualized. Pericardium No significant pericardial effusion noted. Conclusion 1. Mildly enlarged atrium, normal left ventricular size, mild concentric left ventricular hypertrophy, estimated ejection fraction of 45% with segmental wall motion abnormality described above, diastolic parameters are inconclusive. 2. Mild mitral and tricuspid regurgitation. 3. No significant pericardial failure. 4. Inferior vena cava is poorly visualized. Electronically signed by : Sathya Loya MD 10/18/2022 19:37:00
== END ==
PROVIDERS: PCP Family Medicine; Visit Provider Internal Medicine
DX: I42.8 Other cardiomyopathies (principal)
CPT/HCPCS: 93306

== ENCOUNTER 2022-11-15 12:52 | Observation (INO) | payer MEDICARE, SELFPAY ==
[2022-11-15 13:00] VITALS: BP 107/74; PULSE 69; RESP 21; TEMP 36.7; O2SAT 99; BMI 24.0
--- NOTE | 2022-11-15 13:16 | PC.NURSE ---
Pt arrived to the floor at this time.
--- NOTE | 2022-11-15 13:39 | EXP.CARD.CON ---
History of Present Illness History of Present Illness Consult date: 11/15/22 Requesting physician: Kwame Regalado Chief complaint: Needs device upgrade to CRTD, hx of vtach History of present illness: 82 year old white male with past medical hx of normal Cors 2017, HTN, Chronic afib a/c with xarelto, HFrEF s/p AICD, grade one diastolic dysfunction, and KACEY presented to cardiology clinic to discuss AICD upgrade to bi V device in the setting of worsening heart failure and NSVT. Patient's most recent echo shows a reduced EF of 45. Patient's recent device download shows he is V pacing more than 40% and is having frequent episodes of NSVT. The EKG in office shows a QRS > 176ms. Patient complains of dizziness and feeling lightheaded. Dr. James discussed upgrading patients AICD to a BiV device and patient is agreeable. He will be admitted overnight for observation and will undergo device upgrade tomorrow morning. [facility] Disclaimer: The information contained in this section may have been updated after the patient was seen, as this information can be updated by other users. Medical History Atrial fibrillation Dizziness SOB (shortness of breath) Surgical History AICD (automatic cardioverter/defibrillator) present Social History Smoking Status: Never smoker second hand exposure: No alcohol intake: never substance use type: denies use current occupational status: retired Travel in the last 8 weeks: None household members: spouse housing: house caffeine: Yes Review of Systems *Cardiovascular Cardiovascular: Denies chest pain and Denies dyspnea Comments: dizziness and lightheaded *Respiratory Respiratory: Denies dyspnea Exam Data for Last 24 hours Vital signs and Labs for Last 24 Hours: Temp Pulse Resp BP Pulse Ox 98.1 F 69 21 107/74 L 99 11/15/22 13:00 11/15/22 13:00 11/15/22 13:00 11/15/22 13:00 11/15/22 13:00 I & O for Last 24 hours: Intake & Output 11/12/22 11/13/22 11/14/22 11/15/22 23:59 23:59 23:59 23:59 Weight 187 lb 1 oz Constitutional Constitutional: no acute distress *Routine Respiratory Exam Respiratory: Present CTA bilaterally and symmetric chest movement *Routine Cardiovascular Exam Cardiovascular: Present RRR, Normal S1 and Normal S2 *Routine Abdominal Exam Abdominal: Present soft and normoactive bowel sounds; Absent tenderness *Routine Extremities Exam Extremities: Present full ROM and normal capillary refill; Absent edema *Routine Skin Exam Skin: Present intact, dry and warm Detailed Neck Exam: Thyroids Thyroid: Absent bruit Meds Home Medications and Allergies Home Medications Medication Instructions Recorded Confirmed Type tamsulosin 0.4 mg capsule 0.4 mg PO HS prostate 10/26/18 11/15/22 History escitalopram oxalate 20 mg tablet 20 mg PO DAILY Depression 01/24/19 11/15/22 History (Lexapro) donepezil 5 mg tablet (Aricept) 5 mg PO DAILY memory 03/11/19 11/15/22 History levothyroxine 50 mcg tablet 50 mcg PO DAILYDM hypothyroidism 09/16/19 11/15/22 History furosemide 40 mg tablet (Lasix) 40 mg PO DAILYP PRN Fluid 02/18/20 11/15/22 History digoxin 125 mcg (0.125 mg) tablet 125 mcg PO DAILY heart rate 11/15/22 11/15/22 History metoprolol succinate 25 mg 25 mg PO HS High blood pressure 11/15/22 11/15/22 History tablet,extended release 24 hr (Toprol XL) mirtazapine 15 mg tablet 15 mg PO HS appetite and mood 11/15/22 11/15/22 History potassium chloride 20 mEq 20 meq PO DAILY potassium 11/15/22 11/15/22 History tablet,extended release(part/cryst) replacement quetiapine 100 mg tablet 150 mg PO HS mood 11/15/22 11/15/22 History quetiapine 50 mg tablet 75 mg PO 0800,1300 mood 11/15/22 11/15/22 History rivaroxaban 15 mg tablet (Xarelto) 15 mg PO QPMWITHMEAL blood 11/15/22 11/15/22 History thinner/atrial
[2022-11-15 13:45] LABS: Chloride 104 mmol/L (98-107); Sodium 140 mmol/L (136-145)
[2022-11-15 13:46] LABS: Basophils # 0.1 K/mm3 (0-0.2); Basophils % 1.5 % (0.1-2.0); Eosinophils # 0.3 K/mm3 (0.0-0.4); Eosinophils % 3.5 % (0.1-12.0); Hematocrit 46.8 % (42.0-52.0); Hemoglobin 14.8 g/dL (14.1-18.0); Lymphocytes # 2.6 K/mm3 (0.7-4.5); Lymphocytes % 33.1 % (10-50); Mean Corpuscular HGB Conc 31.7 g/dL (31.8-35.4); Mean Corpuscular Hemoglobin 32.1 pg (27.0-31.2); Mean Corpuscular Volume 101.2 fl (80-94); Mean Platelet Volume 7.9 fl (7.4-10.4); Monocytes # 0.7 K/mm3 (0.1-1.0); Neutrophils # 4.1 K/mm3 (1.8-7.8); Platelet Count 304 K/mm3 (142-424); Potassium 3.9 mmoL/L (3.5-5.1); Red Blood Count 4.62 M/mm3 (4.60-6.20); Red Cell Distribution Width 12.9 % (11.5-17.5); White Blood Count 7.8 K/mm3 (4.8-10.8)
[2022-11-15 13:48] LABS: Alanine Aminotransferase 12 U/L (12-78); Albumin Level 4.2 g/dl (3.5-5.0); Albumin/Globulin Ratio 1.2 (1.1-1.8); Alkaline Phosphatase 66 U/L (38-126); Anion Gap 11.9 mEq/L (5-15); Aspartate Amino Transferase 22 U/L (17-59); Bilirubin,Total 0.5 mg/dl (0.2-1.3); Blood Urea Nitrogen 23 mg/dl (9-20); Carbon Dioxide 28 mmol/L (22.0-30.0); Creatinine Clearance Estimated 42 mL/min (50-200); Estimated Glomerular Filt Rate 39 ml/min (>60); GFR (African American) 47 ML/MIN (>60); Globulin 3.6 g/dL (1.3-3.2); Total Protein,Serum 7.8 g/dl (6.3-8.2)
[2022-11-15 13:49] LABS: Calcium 8.4 mg/dl (8.4-10.2); Glucose 113 mg/dl (74-100)
--- NOTE | 2022-11-15 13:56 | HMH.PHAINT1 ---
Pharmacy Intervention Comments: home medication list verified using lsit from pharmacy and cardiology office. Nursing will clarify
[2022-11-15 14:22] LABS: Coronavirus 19, PCR Not Detected (NotDetected); Influenza A, PCR Not Detected (NotDetected); Influenza B, PCR Not Detected (NotDetected)
--- NOTE | 2022-11-15 14:35 | PC.NURSE ---
DAVONTE Steve from [facility] called for patient update
[2022-11-15 14:53] LABS: Thyroid Stimulating Hormone 1.21 uIU/mL (0.465-4.68)
[2022-11-15 16:00] VITALS: BP 112/60; PULSE 69; RESP 18; TEMP 36.8; O2SAT 97
--- NOTE | 2022-11-15 18:55 | PC.NURSE ---
Patient rested well this shift. Denies any needs.
--- NOTE | 2022-11-15 19:08 | EXP.HP ---
History of Present Illness *Admission Date: 11/15/22 *Reason for visit:: Worsening heart failure *History of present illness: Mr. Gutiérrez is an 82-year-old gentleman who initially presented to cardiology clinic earlier today. Concern at that time for worsening heart failure with reducing ejection fraction. Currently has AICD in place. 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 Decision to admit overnight because of symptomatic state with dizziness. Cardiology consulted medicine for admission and observation overnight. Additional cardiac history as follows: Past medical hx of normal Cors 2017, HTN, Chronic afib a/c with xarelto, and KACEY. Patient's most recent echo shows a reduced EF of 45. Patient's recent device download shows he is? V pacing more than 40% and is having frequent episodes of NSVT. The EKG in office showed a QRS > 176ms. Patient complains of dizziness and feeling lightheaded. Denies jordan chest pain, nausea, vomiting, shortness of breath, confusion. No falls. [facility] Disclaimer: The information contained in this section may have been updated after the patient was seen, as this information can be updated by other users. Medical History Atrial fibrillation Dizziness SOB (shortness of breath) Surgical History AICD (automatic cardioverter/defibrillator) present Social History Smoking Status: Never smoker second hand exposure: No alcohol intake: never substance use type: denies use current occupational status: retired Travel in the last 8 weeks: None household members: spouse housing: house caffeine: Yes Review of Systems Review of Systems Review of systems (narrative): 14 point review of systems performed, pertinent positives and negatives as per HPI Meds Home Medications and Allergies Home Medications Medication Instructions Recorded Confirmed Type tamsulosin 0.4 mg capsule 0.4 mg PO HS prostate 10/26/18 11/15/22 History escitalopram oxalate 20 mg tablet 20 mg PO DAILY Depression 01/24/19 11/15/22 History (Lexapro) donepezil 5 mg tablet (Aricept) 5 mg PO DAILY memory 03/11/19 11/15/22 History levothyroxine 50 mcg tablet 50 mcg PO DAILYDM hypothyroidism 09/16/19 11/15/22 History furosemide 40 mg tablet (Lasix) 40 mg PO DAILYP PRN Fluid 02/18/20 11/15/22 History digoxin 125 mcg (0.125 mg) tablet 125 mcg PO DAILY heart rate 11/15/22 11/15/22 History metoprolol succinate 25 mg 25 mg PO HS High blood pressure 11/15/22 11/15/22 History tablet,extended release 24 hr (Toprol XL) mirtazapine 15 mg tablet 15 mg PO HS appetite and mood 11/15/22 11/15/22 History potassium chloride 20 mEq 20 meq PO DAILY potassium 11/15/22 11/15/22 History tablet,extended release(part/cryst) replacement quetiapine 100 mg tablet 150 mg PO HS mood 11/15/22 11/15/22 History quetiapine 50 mg tablet 75 mg PO 0800,1300 mood 11/15/22 11/15/22 History rivaroxaban 15 mg tablet (Xarelto) 15 mg PO QPMWITHMEAL blood 11/15/22 11/15/22 History thinner/atrial fib trazodone 50 mg tablet 50 - 100 mg PO HS Insomnia 11/15/22 11/15/22 History New Prescriptions to Start Prescriptions: Allergies Allergy/AdvReac Type Severity Reaction Status Date / Time codeine Allergy Verified 11/15/22 11:32 spironolactone Allergy gynecomasti Verified 11/15/22 11:32 [From Aldactone] a Exam Data for Last 24 hours Vital signs and Labs for Last 24 Hours: Temp Pulse Resp BP Pulse Ox 98.2 F 69 18 112/60 97 11/15/22 16:00 11/15/22 16:00 11/15/22 16:00 11/15/22 16:00 11/15/22 16:00 Laboratory Results - last 24 hr 11/15/22 13:28: SARS-CoV-2 (PCR) Not detected, Influenza A Untype (PCR) Not detected, Influenza Type B (PCR) Not detected 11/15/22 13:30: WBC 7.8, RBC 4.62, Hgb 14.8, Hct 46.8, M
[2022-11-15 19:23] VITALS: BP 126/79; PULSE 70; RESP 18; TEMP 37.1; O2SAT 100
[2022-11-16] VITALS (15 sets, daily range): BP systolic 110–132; BP diastolic 40–79; PULSE 65–86; RESP 16–19; TEMP 36.7–37.1; O2SAT 93–100; BMI 23.6
--- NOTE | 2022-11-16 06:46 | PC.NURSE ---
Pt did not voice any c/o to staff t/o night. Ambulated in room independently. NPO since midnight. Call light within reach.
[2022-11-16 06:52] LABS: Basophils # 0.1 K/mm3 (0-0.2); Eosinophils # 0.3 K/mm3 (0.0-0.4); Eosinophils % 2.7 % (0.1-12.0); Hematocrit 46.8 % (42.0-52.0); Hemoglobin 14.9 g/dL (14.1-18.0); Lymphocytes # 2.4 K/mm3 (0.7-4.5); Lymphocytes % 24.8 % (10-50); Mean Corpuscular HGB Conc 31.9 g/dL (31.8-35.4); Mean Corpuscular Hemoglobin 32.2 pg (27.0-31.2); Mean Platelet Volume 8.4 fl (7.4-10.4); Monocytes # 0.6 K/mm3 (0.1-1.0); Monocytes % 6.5 % (1.7-9.3); Neutrophils # 6.3 K/mm3 (1.8-7.8); Platelet Count 326 K/mm3 (142-424); Red Blood Count 4.63 M/mm3 (4.60-6.20); Red Cell Distribution Width 12.9 % (11.5-17.5); White Blood Count 9.6 K/mm3 (4.8-10.8)
[2022-11-16 06:58] LABS: Sodium 137 mmol/L (136-145)
[2022-11-16 07:00] LABS: Alanine Aminotransferase 13 U/L (12-78); Albumin Level 4.3 g/dl (3.5-5.0); Albumin/Globulin Ratio 1.3 (1.1-1.8); Alkaline Phosphatase 76 U/L (38-126); Anion Gap 8.7 mEq/L (5-15); Aspartate Amino Transferase 20 U/L (17-59); Bilirubin,Total 0.8 mg/dl (0.2-1.3); Blood Urea Nitrogen 23 mg/dl (9-20); Calcium 8.5 mg/dl (8.4-10.2); Carbon Dioxide 30 mmol/L (22.0-30.0); Chloride 103 mmol/L (98-107); Chol/HDL Ratio 8.2 (1-3.5); Cholesterol 288 mg/dl (140-200); Creatinine Clearance Estimated 41 mL/min (50-200); Estimated Glomerular Filt Rate 39 ml/min (>60); GFR (African American) 47 ML/MIN (>60); Globulin 3.3 g/dL (1.3-3.2); Glucose 137 mg/dl (74-100); HDL Cholesterol 35 mg/dl (40-60); Magnesium 2.2 mg/dl (1.6-2.3); Potassium 4.7 mmoL/L (3.5-5.1); Total Protein,Serum 7.6 g/dl (6.3-8.2); Triglycerides 214 mg/dl (30-150); VLDL Cholesterol 43 mg/dL (0-40)
[2022-11-16 07:11] LABS: Direct LDL Cholesterol 166.99 mg/dL (100-129)
[2022-11-16 07:30] LABS: Thyroid Stimulating Hormone 1.32 uIU/mL (0.465-4.68)
--- NOTE | 2022-11-16 08:48 | EXP.CARD.PN ---
Subjective Subjective Date: 11/16/22 Time: 08:00 Principal diagnosis: device upgrade Interval history: doing well, denies complaints. am labs reviewed. Exam Data for Last 24 hours Vital signs and Labs for Last 24 Hours: Temp Pulse Resp BP Pulse Ox 98.3 F 70 18 116/67 100 11/16/22 07:29 11/16/22 08:10 11/16/22 07:29 11/16/22 07:29 11/16/22 07:29 Laboratory Results - last 24 hr 11/15/22 13:28: SARS-CoV-2 (PCR) Not detected, Influenza A Untype (PCR) Not detected, Influenza Type B (PCR) Not detected 11/15/22 13:30: WBC 7.8, RBC 4.62, Hgb 14.8, Hct 46.8, MCV 101.2 H, MCH 32.1 H, MCHC 31.7 L, RDW 12.9, Plt Count 304, MPV 7.9, Neut % (Auto) 53.0, Lymph % (Auto) 33.1, [place] % (Auto) 9.0, Eos % (Auto) 3.5, Baso % (Auto) 1.5, Neut # (Auto) 4.1, Lymph # (Auto) 2.6, [place] # (Auto) 0.7, Eos # (Auto) 0.3, Baso # (Auto) 0.1 11/15/22 13:30: TSH 1.21 11/15/22 13:30: Sodium 140, Potassium 3.9, Chloride 104, Carbon Dioxide 28, Anion Gap 11.9, BUN 23 H, Creatinine 1.70 H, Estimated Creat Clear 42, Estimated GFR 39 L, Est GFR ( Amer) 47 L, Glucose 113 H, Calcium 8.4, Total Bilirubin 0.5, AST 22, ALT 12, Alkaline Phosphatase 66, Total Protein 7.8, Albumin 4.2, Globulin 3.6 H, Albumin/Globulin Ratio 1.2 11/16/22 06:45: WBC 9.6, RBC 4.63, Hgb 14.9, Hct 46.8, MCV 101.0 H, MCH 32.2 H, MCHC 31.9, RDW 12.9, Plt Count 326, MPV 8.4, Neut % (Auto) 65.0, Lymph % (Auto) 24.8, [place] % (Auto) 6.5, Eos % (Auto) 2.7, Baso % (Auto) 1.0, Neut # (Auto) 6.3, Lymph # (Auto) 2.4, [place] # (Auto) 0.6, Eos # (Auto) 0.3, Baso # (Auto) 0.1 11/16/22 06:45: Sodium 137, Potassium 4.7 D, Chloride 103, Carbon Dioxide 30, Anion Gap 8.7, BUN 23 H, Creatinine 1.70 H, Estimated Creat Clear 41, Estimated GFR 39 L, Est GFR ( Amer) 47 L, Glucose 137 H D, Calcium 8.5, Magnesium 2.2, Total Bilirubin 0.8, AST 20, ALT 13, Alkaline Phosphatase 76, Total Protein 7.6, Albumin 4.3, Globulin 3.3 H, Albumin/Globulin Ratio 1.3, Triglycerides 214 H, Cholesterol 288 H, LDL Cholesterol Direct 166.99 H, VLDL Cholesterol 43 H, HDL Cholesterol 35 L, Cholesterol/HDL Ratio 8.2 H, TSH 1.32 I & O for Last 24 hours: Intake & Output 11/13/22 11/14/22 11/15/22 11/16/22 23:59 23:59 23:59 23:59 Intake Total 240 / 240 Output Total 0 / 0 0 / 0 Balance 240 / 240 0 / 0 Weight 187 lb 1 oz 184 lb Constitutional Constitutional: no acute distress *Routine Respiratory Exam Respiratory: Present CTA bilaterally and symmetric chest movement *Routine Cardiovascular Exam Cardiovascular: Present RRR, Normal S1 and Normal S2 *Routine Abdominal Exam Abdominal: Present soft and normoactive bowel sounds; Absent tenderness *Routine Extremities Exam Extremities: Present full ROM and normal capillary refill; Absent edema *Routine Skin Exam Skin: Present intact, dry and warm Detailed Neck Exam: Thyroids Thyroid: Absent bruit Progress Note: A&P Assessment and plan (1) Heart failure with reduced ejection fraction: Status: Acute (2) AICD (automatic cardioverter/defibrillator) present: Status: Acute (3) HTN (hypertension): Status: Acute (4) Chronic a-fib: Status: Acute (5) On continuous oral anticoagulation: Status: Acute (6) Diastolic dysfunction: Status: Acute (7) HLD (hyperlipidemia): Status: Acute (8) KACEY (obstructive sleep apnea): Status: Acute Assessment and Plan Assessment and Plan for All Diagnoses:: HFrEF/DD grade 1/ s/p AICD- NYHA II-III -Worsening heart failure,? newly reduced EF of 45 -QRS duration > 170ms -Frequent NSVT noted on device interrogation -Plan to upgrade device to BiV aicd tomorrow morning. Dr. James discussed risks versus benefits, patient is agreeable. -BP is too low for CAMILLE/ARB. Continue Metoprolol succinate ER 25 mg po daily. Continue lasix 40mg po prn. Consider addition of jardiance and aldactone prior to dc home. -Of note, no ischemic eval since 2017. Discussed with Dr. James, will consider stress te
--- NOTE | 2022-11-16 09:24 | IR_ITS ---
APPROVED REPORT Patient Location: Inpatient English Composition Instructor: BENJY Taveras RT (R) PROCEDURES 1. Pocket Revision 2. Placement of left ventricular sensing pacing lead into the coronary sinus. 3. Permanent cardiac resynchronization therapy with ICD implantation/biventricular pacemaker. INDICATION Systolic Congestive Heart Failure, ejection <35%, Wide QRS >120ms, Lares Heart Assoication Class 3 Congestive Heart Failure Informed consent was obtained prior to the procedure. COMPLICATIONS None Estimated Blood Loss: Less than 10 mls TECHNIQUE 1% lidocaine with epinephrine used to anesthetize the left anterior aspect of the chest. Scalpel was used to make the initial cutaneous incision and to dissect down into the fascia. The generator was removed from the existing pocket. Digital manipulation was required along with intermittent usage of scalpel in order to revise the pocket. The leads were removed from the old generator. The patient was then placed in Trendelenburg position and the subclavian vein was accessed 1 time via the Selinger technique. A 9.5 Romansh sheath was placed under fluoroscopic guidance into the subclavian vein. The dilator was removed from the sheath. Under fluoroscopic guidance the coronary sinus was cannulated and confirmed with an injection of contrast. An 0.014 wire was then placed distally in the inferior posterior segment of the left ventricle via the coronary sinus and the left ventricular lead was advanced. After achieving excellent thresholds and interrogation numbers the sheath was then peeled away and the lead was then secured into place using silk suture. Ancef was used to flush the pocket and the 3 leads were attached to the SUPERVISOR CASE LOADING-D generator. The generator was then secured into place by heavy silk suture. Monocryl was used to close the subcutaneous layers while kendell were used to close the subcutaneous layers while kendell were used to close the cutaneous layer. A pressure dressing was placed and the patient was transferred to the postop holding area in stable condition for postoperative care. INTERROGATION Generator Model number: VIGILANT X4 SUPERVISOR CASE LOADING-D, G247 Generator Serial number: [id number] Atrial lead model number: INGEVITY 52CM, 7741 Atrial lead serial number: [id number] P-wave: 5.6mV Impedence: 742 ohms Threshold: 1.0V Current: 1.3mA Right Ventricular lead model number: RELIANCE 4-FRONT 59CM, 0675 Right Ventricular lead serial number: [id number] R-wave: 10mV Impedence: 562 ohms Threshold: 1.0V@0.4ms Current: 1.8mA Left Ventricular lead model number: KEVIN X4 STRAIGHT 86CM, 4671 Left Ventricular lead serial number: [id number] R-wave: 10mV Impedence: 2722 ohms Threshold: 1.5V@0.4ms (LV tip to ring) Current: 0.6mA Pacing Parameters: Mode: DDDR Base/Max Track: 70 ppm / 130 ppm ICD Thereapy Parameters: VF 200 bpm 2.5 sec., Quick Convert, 41J x 1, 41J x 1, 41J x 6 VT 170 bpm 5 sec., ATP, 41J x 1, 41J x 1, 41J x 4 No diaphragmatic stimulation at 10 volts. IMPRESSION 1. Successful Pocket Revision 2. Successful Placement of left ventricular sensing pacing lead into the coronary sinus. 3. Successful Permanent cardiac resynchronization therapy with ICD implantation/biventricular pacemaker. PLAN 1. Post op wound care, follow up office visit Electronically signed by : Merritt James MD 11/16/2022 15:47:57
[2022-11-16 11:34] LABS: Basophils # 0.1 K/mm3 (0-0.2); Basophils % 1.2 % (0.1-2.0); Eosinophils # 0.3 K/mm3 (0.0-0.4); Eosinophils % 3.2 % (0.1-12.0); Hematocrit 46.5 % (42.0-52.0); Hemoglobin 14.5 g/dL (14.1-18.0); Lymphocytes # 2.5 K/mm3 (0.7-4.5); Lymphocytes % 27.2 % (10-50); Mean Corpuscular HGB Conc 31.3 g/dL (31.8-35.4); Mean Corpuscular Hemoglobin 31.8 pg (27.0-31.2); Mean Corpuscular Volume 101.8 fl (80-94); Mean Platelet Volume 8.1 fl (7.4-10.4); Monocytes # 0.7 K/mm3 (0.1-1.0); Monocytes % 7.8 % (1.7-9.3); Neutrophils # 5.7 K/mm3 (1.8-7.8); Neutrophils % 60.5 % (37.0-80.0); Platelet Count 319 K/mm3 (142-424); Red Blood Count 4.57 M/mm3 (4.60-6.20); White Blood Count 9.3 K/mm3 (4.8-10.8)
[2022-11-16 11:40] LABS: Anion Gap 8.4 mEq/L (5-15); Blood Urea Nitrogen 25 mg/dl (9-20); Calcium 8.4 mg/dl (8.4-10.2); Carbon Dioxide 32 mmol/L (22.0-30.0); Chloride 102 mmol/L (98-107); Creatinine Clearance Estimated 41 mL/min (50-200); Estimated Glomerular Filt Rate 39 ml/min (>60); GFR (African American) 47 ML/MIN (>60); Glucose 114 mg/dl (74-100); Potassium 4.4 mmoL/L (3.5-5.1); Sodium 138 mmol/L (136-145)
--- NOTE | 2022-11-16 15:22 | XR_ITS ---
FINAL REPORT CLINICAL HISTORY: Confirm pacemaker/AID placement COMPARISON: none FINDINGS: A single portable view of the chest was obtained. Left subclavian AICD is in place. The heart size is enlarged. The mediastinum is within normal limits. There is mild left base atelectasis or scar. No pneumothorax. There are multiple chronic left rib fractures seen. IMPRESSION: Left subclavian AICD in place. Mild left base atelectasis or scar. Reviewed, Interpreted and Dictated by Cedrick Franklin III, MD Transcribed by Latasha Lynne Authenticated and [facility]
--- NOTE | 2022-11-16 15:23 | EXP.ANES.CKL ---
[facility] Disclaimer: The information contained in this section may have been updated after the patient was seen, as this information can be updated by other users. Medical History (Updated 11/16/22 @ 10:17 by Henna Roberson RN) Atrial fibrillation BPH (benign prostatic hyperplasia) Dizziness Hypothyroidism Insomnia SOB (shortness of breath) Surgical History AICD (automatic cardioverter/defibrillator) present Social History Smoking Status: Never smoker second hand exposure: No alcohol intake: never substance use type: denies use current occupational status: retired Travel in the last 8 weeks: None household members: spouse housing: house caffeine: Yes [facility] Anesthesia Checklist Patient Identification Patient Identification: Arm Band and Verbal (Name & ) Structural Data Admitted From: Inpatient Planned Operative Procedure/s: Bi Venrticular Pacemaker Upgrade Consent for Planned Operative Procedure(s) Verified: Yes Verified Documents: Surgical Consent NPO Status Verified Time NPO: 00:00 Additional verifications Anesthesia Reactions: No Hx Blood Transfusions: No Blood Transfusion Reaction: No Airway Assessment C-Spine Mobility Assessed: Yes TMJ Mobility Assessed: Yes Neurological Assessment Level of Consciousness: Awake, Alert and Appropriate Anesthesia Plan Anesthesia Risk discussed: Yes ASA Class: III Anesthesia Type: MAC
--- NOTE | 2022-11-16 15:47 | P.PN_ITS ---
Subjective *Date: 11/16/22 *Time: 15:47 Medical Exam Vital signs and Labs for Last 24 Hours: Vital Signs Temp Pulse Pulse Resp BP Pulse Ox 11/16/22 15:34 86 11/16/22 15:30 86 18 113/72 93 L 11/16/22 15:25 70 11/16/22 11:36 98.0 F 65 19 132/74 100 11/16/22 08:30 70 11/16/22 08:10 70 11/16/22 07:29 98.3 F 70 18 116/67 100 11/16/22 03:56 98.7 F 70 18 123/78 97 11/15/22 19:23 98.8 F 70 18 126/79 100 11/15/22 16:00 98.2 F 69 18 112/60 97 Intake and Output 11/15/22 11/16/22 11/16/22 23:59 07:59 15:59 Intake Total 240 / 240 Output Total 0 / 0 0 / 0 0 / 0 Balance 240 / 240 0 / 0 0 / 0 Intake: Intake, Oral Amount 240 / 240 Output: Output, Urine Amount 0 / 0 0 / 0 0 / 0 Other: Number of Voids 0 Number of Unmeasured Voids 1 1 1 Weight 83.461 kg Patient Weight 11/16/22 23:59 Weight 83.461 kg Laboratory Results - last 24 hr 11/16/22 06:45: WBC 9.6, RBC 4.63, Hgb 14.9, Hct 46.8, MCV 101.0 H, MCH 32.2 H, MCHC 31.9, RDW 12.9, Plt Count 326, MPV 8.4, Neut % (Auto) 65.0, Lymph % (Auto) 24.8, [place] % (Auto) 6.5, Eos % (Auto) 2.7, Baso % (Auto) 1.0, Neut # (Auto) 6.3, Lymph # (Auto) 2.4, [place] # (Auto) 0.6, Eos # (Auto) 0.3, Baso # (Auto) 0.1 11/16/22 06:45: Sodium 137, Potassium 4.7 D, Chloride 103, Carbon Dioxide 30, Anion Gap 8.7, BUN 23 H, Creatinine 1.70 H, Estimated Creat Clear 41, Estimated GFR 39 L, Est GFR ( Amer) 47 L, Glucose 137 H D, Calcium 8.5, Magnesium 2.2, Total Bilirubin 0.8, AST 20, ALT 13, Alkaline Phosphatase 76, Total Protein 7.6, Albumin 4.3, Globulin 3.3 H, Albumin/Globulin Ratio 1.3, Triglycerides 214 H, Cholesterol 288 H, LDL Cholesterol Direct 166.99 H, VLDL Cholesterol 43 H, HDL Cholesterol 35 L, Cholesterol/HDL Ratio 8.2 H, TSH 1.32 11/16/22 11:25: WBC 9.3, RBC 4.57 L, Hgb 14.5, Hct 46.5, MCV 101.8 H, MCH 31.8 H , MCHC 31.3 L, RDW 13.0, Plt Count 319, MPV 8.1, Neut % (Auto) 60.5, Lymph % (Auto) 27.2, [place] % (Auto) 7.8, Eos % (Auto) 3.2, Baso % (Auto) 1.2, Neut # (Auto) 5.7, Lymph # (Auto) 2.5, [place] # (Auto) 0.7, Eos # (Auto) 0.3, Baso # (Auto) 0.1 11/16/22 11:25: Sodium 138, Potassium 4.4, Chloride 102, Carbon Dioxide 32 H, Anion Gap 8.4, BUN 25 H, Creatinine 1.70 H, Estimated Creat Clear 41, Estimated GFR 39 L, Est GFR ( Amer) 47 L, Glucose 114 H, Calcium 8.4 I & O for Labs for Last 24 Hours: Intake & Output 11/13/22 11/14/22 11/15/22 11/16/22 23:59 23:59 23:59 23:59 Intake Total 240 / 240 Output Total 0 / 0 0 / 0 Balance 240 / 240 0 / 0 Weight 84.85 kg 83.461 kg
--- NOTE | 2022-11-16 16:05 | PC.NURSE ---
courtesy tech alex: pt is back from procedure and hooked up to vitals machine for post procedural vitals. Call light is within reach with no requests voiced at this time.
--- NOTE | 2022-11-16 16:12 | EXP.DC.SUM ---
General Admission date:: 11/15/22 Discharge date: 11/16/22 HPI HPI HPI: Mr. Gutiérrez is an 82-year-old gentleman who initially presented to cardiology clinic earlier today. Concern at that time for worsening heart failure with reducing ejection fraction. Currently has AICD in place. Heart function worsening with AICD, discussion today about upgrading to BiV/HYDROLOGIC ENGINEER?D in cardiology clinic. Decision to admit overnight because of symptomatic state with dizziness. Cardiology consulted medicine for admission and observation overnight. Additional cardiac history as follows: Past medical hx of normal Cors 2017, HTN, Chronic afib a/c with xarelto, and KACEY. Patient's most recent echo shows a reduced EF of 45. Patient's recent device download shows he is? V pacing more than 40% and is having frequent episodes of NSVT. The EKG in office showed a QRS > 176ms. Patient complains of dizziness and feeling lightheaded. Denies jordan chest pain, nausea, vomiting, shortness of breath, confusion. No falls. Hospital Course Hospital Course Hospital Course: 82-year-old gentleman admitted for observation overnight given weakness and dizziness concerning for secondary to worsening heart failure.? Cardiology consulted medicine for admission, decision to admit for observation overnight with plan for cardiac resynchronization therapy in the morning.? Problems addressed as follows: HFrEF s/p AICD NYHA II-III -Worsening heart failure with EF of 45% on most recent echo. Admitted for observation overnight. Taken this morning for BiV AICD upgrade with addition of wire to current device. Patient tolerated procedure well. Stable for discharge home to continue previous medication regimen. No changes at this time. Will defer further addition of medication to cardiology with close follow-up. Cardiology to consider addition of Jardiance and/or Aldactone at outpatient follow-up. Chronic afib Chadsvasc score 4 -Continue metoprolol succinate ER 25 mg po daily. Continue digoxin 125mcg daily. Resume Xarelto after discharge. HLD: Initiate high intensity statin. Fasting lipid panel morning of discharge showing LDL of 166. Hypothyroid: Continue levothyroxine 50 mg daily. TSH on morning of discharge well-controlled at 1.3. Mood disorder: Continue donepezil for memory, Lexapro 20 mg daily, mirtazapine at night for sleep, Seroquel 3 times a day for mood Stable for discharge home. Close follow-up with cardiology to monitor response to cardiac resynchronization therapy and further adjustments. Exam Data for Last 24 hours Vital signs and Labs for Last 24 Hours: Temp Pulse Resp BP Pulse Ox 98.0 F 86 18 113/72 93 L 11/16/22 11:36 11/16/22 15:34 11/16/22 15:30 11/16/22 15:30 11/16/22 15:30 Laboratory Results - last 24 hr 11/16/22 06:45: WBC 9.6, RBC 4.63, Hgb 14.9, Hct 46.8, MCV 101.0 H, MCH 32.2 H, MCHC 31.9, RDW 12.9, Plt Count 326, MPV 8.4, Neut % (Auto) 65.0, Lymph % (Auto) 24.8, [place] % (Auto) 6.5, Eos % (Auto) 2.7, Baso % (Auto) 1.0, Neut # (Auto) 6.3, Lymph # (Auto) 2.4, [place] # (Auto) 0.6, Eos # (Auto) 0.3, Baso # (Auto) 0.1 11/16/22 06:45: Sodium 137, Potassium 4.7 D, Chloride 103, Carbon Dioxide 30, Anion Gap 8.7, BUN 23 H, Creatinine 1.70 H, Estimated Creat Clear 41, Estimated GFR 39 L, Est GFR ( Amer) 47 L, Glucose 137 H D, Calcium 8.5, Magnesium 2.2, Total Bilirubin 0.8, AST 20, ALT 13, Alkaline Phosphatase 76, Total Protein 7.6, Albumin 4.3, Globulin 3.3 H, Albumin/Globulin Ratio 1.3, Triglycerides 214 H, Cholesterol 288 H, LDL Cholesterol Direct 166.99 H, VLDL Cholesterol 43 H, HDL Cholesterol 35 L, Cholesterol/HDL Ratio 8.2 H, TSH 1.32 11/16/22 11:25: WBC 9.3, RBC 4.57 L, Hgb 14.5, Hct 46.5, MCV 101.8 H, MCH 31.8 H, MCHC 31.3 L, RDW 13.0, Plt Count 319, MPV 8.1, Neut % (Auto) 60.5, Lymph % (Auto) 27.2, [place] % (Auto) 7.8, Eos % (Auto) 3.2, Baso % (Auto) 1.2, Neut # (Auto) 5.7, Lymph # (Auto) 2.5, [place] # (Auto) 0.7, Eos # (Auto) 0.3, Baso # (Auto) 0.1
--- NOTE | 2022-11-16 16:28 | HMH.PHAINT1 ---
Pharmacy Intervention Comments: Discharge medications discussed with patient and patient's . Both verbalized understanding and had no questions at this time
--- NOTE | 2022-11-17 13:27 | CARE MANAGER ---
Contacted patient's regarding hospital discharge. She states he is asleep but he is doing ok. They picked up new medications and are aware of follow up appointments. Denies questions or concerns. DAVONTE Sosa
== END 2022-11-16 17:45 | disposition home or self-care (01) ==
PROVIDERS: Internal Medicine; Admitting Provider Internal Medicine Adolescent Medicine; PCP Family Medicine; Visit Provider Internal Medicine Adolescent Medicine
PROC: 0JH609Z Insertion of Cardiac Resynchronization Defibrillator Pulse Generator into Chest Subcutaneous Tissue and Fascia, Open Approach (ICD-10-PCS; CPT 33249; principal; 2022-11-16 10:30)
DX: I50.22 Chronic systolic (congestive) heart failure (principal); Z45.02 Encounter for adjustment and management of automatic implantable cardiac defibrillator; I48.20 Chronic atrial fibrillation, unspecified; Z79.01 Long term (current) use of anticoagulants; Z79.899 Other long term (current) drug therapy; I42.8 Other cardiomyopathies; I27.20 Pulmonary hypertension, unspecified; I11.0 Hypertensive heart disease with heart failure; G47.33 Obstructive sleep apnea (adult) (pediatric); E78.5 Hyperlipidemia, unspecified; Z20.822 Contact with and (suspected) exposure to COVID-19
CPT/HCPCS: G0378; G0379; 33225; 33264; 36415; 71045; 80048; 80053; 80061; 83735; 84443; 85025; C1769; C1882; C1900; C9803; Q9967; U0003; U0005

== ENCOUNTER → 2023-05-02 13:27 | Outpatient (CLI) | payer MEDICARE, SELFPAY ==
--- NOTE | 2023-05-02 13:32 | CA_ITS ---
APPROVED REPORT EXAM: Comprehensive 2D, Doppler, and color-flow Echocardiogram Tobacco Warehouse Manager: Gypsy Mcdermott CRT Ht: 6 ft 2 in Wt: 177lbs BSA: 2.06 BP: 111/78 mmHg Indications: ef check, afib, htn, hld, chf, aicd, EF 45% on echo 10/18/22 2D Dimensions LVOT 2.00 cm (M/F) 1.5-2.5 M-Mode Dimensions RVDd 3.65 cm (0.9-2.6) LA Diam 4.84 cm (1.9-4.0) LVDd 5.69 cm (3.5-5.7) Ao Diam 3.93 cm (2.0-3.7) LVDs 4.97 cm (3.5-5.7) IVSd 1.36 cm (0.6-1.1) PWd 0.39 cm (0.6-1.1) EF (Teich) 26.90% FS 12.70% EDV (Teich) 159.40 mL ESV (Teich) 116.60 mL Other Information Study Quality: Fair Conclusion This is a limited study to evaluate for LV systolic function. The LV appears normal in size. There is moderate to severe reduction in LV systolic function. LVEF is 30% . There is severe hypokinesis of the inferior, inferolateral, and lateral LV klein. The RV appears normal in size and function. There is a device lead noted in the RV. Compared to prior study from 10/18/2022, the LVEF now appears further reduced. Electronically signed by : Solange Alves, 05/02/2023 18:55:10
== END ==
PROVIDERS: PCP Family Medicine; Visit Provider Internal Medicine
DX: I10 Essential (primary) hypertension (principal); I50.20 Unspecified systolic (congestive) heart failure
CPT/HCPCS: 93308

== ENCOUNTER 2024-03-11 11:36 | Outpatient (CLI) | payer MEDICARE, SELFPAY ==
[2024-03-11 12:10] LABS: Basophils # 0.1 K/mm3 (0-0.2); Basophils % 1.3 % (0.1-2.0); Eosinophils # 0.3 K/mm3 (0.0-0.4); Hematocrit 41.1 % (42.0-52.0); Hemoglobin 13.5 g/dL (14.1-18.0); Lymphocytes # 2.1 K/mm3 (0.7-4.5); Lymphocytes % 29.5 % (10-50); Mean Platelet Volume 8.5 fl (7.4-10.4); Monocytes # 0.7 K/mm3 (0.1-1.0); Monocytes % 9.7 % (1.7-9.3); Neutrophils % 55.4 % (37.0-80.0); Platelet Count 255 K/mm3 (142-424); Red Blood Count 3.87 M/mm3 (4.60-6.20); Red Cell Distribution Width 13.7 % (11.5-17.5); White Blood Count 7.2 K/mm3 (4.8-10.8)
[2024-03-11 12:51] LABS: Chloride 108 mmol/L (98-107)
[2024-03-11 12:53] LABS: Alanine Aminotransferase 7 U/L (12-78); Alkaline Phosphatase 56 U/L (38-126); Aspartate Amino Transferase 14 U/L (17-59); Bilirubin,Indirect 0.4 mg/dL (0.0-0.9); Bilirubin,Total 0.4 mg/dl (0.2-1.3); Bilirubin,Unconjugated 0.3 mg/dL (0.0-1.1); Blood Urea Nitrogen 22 mg/dl (9-20); Carbon Dioxide 28 mmol/L (22.0-30.0); Estimated Glomerular Filt Rate 39 ml/min (>60); GFR (African American) 47 ML/MIN (>60)
[2024-03-11 12:54] LABS: Calcium 9.1 mg/dl (8.4-10.2); Chol/HDL Ratio 4.9 (1-3.5); Cholesterol 191 mg/dl (140-200); Glucose 71 mg/dl (74-100); HDL Cholesterol 39 mg/dl (40-60); Magnesium 1.8 mg/dl (1.6-2.3); Total Protein,Serum 6.9 g/dl (6.3-8.2); Triglycerides 139 mg/dl (30-150); VLDL Cholesterol 28 mg/dL (0-40)
[2024-03-11 13:05] LABS: Direct LDL Cholesterol 115.88 mg/dL (100-129)
[2024-03-11 13:11] LABS: Free T4 (Free Thyroxine) 0.84 ng/dl (0.78-2.19)
[2024-03-11 13:33] LABS: Sodium 143 mmol/L (136-145)
[2024-03-11 14:33] LABS: Thyroid Stimulating Hormone 0.49 uIU/mL (0.465-4.68)
== END 2024-03-11 23:59 | disposition home or self-care (01) ==
LOC: LAB 11:39
PROVIDERS: PCP Family Medicine; Visit Provider Internal Medicine
DX: R53.83 Other fatigue (principal); I34.0 Nonrheumatic mitral (valve) insufficiency; I27.20 Pulmonary hypertension, unspecified; I42.0 Dilated cardiomyopathy; I42.8 Other cardiomyopathies; I50.20 Unspecified systolic (congestive) heart failure; Z95.810 Presence of automatic (implantable) cardiac defibrillator; I10 Essential (primary) hypertension; I48.20 Chronic atrial fibrillation, unspecified; Z79.01 Long term (current) use of anticoagulants; I51.89 Other ill-defined heart diseases; E78.5 Hyperlipidemia, unspecified; G47.33 Obstructive sleep apnea (adult) (pediatric)
CPT/HCPCS: 36415; 80048; 80061; 80076; 83735; 84439; 84443; 85025

== ENCOUNTER 2024-06-11 10:20 | Outpatient (CLI) | payer MEDICARE, SELFPAY ==
--- NOTE | 2024-06-11 10:31 | CA_ITS ---
APPROVED REPORT EXAM: Comprehensive 2D, Doppler, and color-flow Echocardiogram Trim Technician: Eugenia Cortés, RCS, RVS Ht: 6 ft 2 in Wt: 183lbs BSA: 2.09 BP: 86/56 mmHg Indications: CM,AFIB, Pacemaker, PHTN, MR, AI Echo Enhancing Agent Comments: Unable to rule out BAV, Patient very nervous with extreme claustrophobia- no contrast utilized due to patient tolerance to lenghth of exam. 2D Dimensions LVDs 4.07 cm M: 2.5 - 4.0 LA Volume 113.30 mL LA Volume Index 54.725771 mL/m2 (M/F) 16-34 M-Mode Dimensions RVDd 2.16 cm (0.9-2.6) LA Diam 4.39 cm (1.9-4.0) LVDd 6.40 cm (3.5-5.7) LVDs 5.34 cm (3.5-5.7) IVSd 1.27 cm (0.6-1.1) PWd 1.46 cm (0.6-1.1) EF (Teich) 34.00% EPSs 1.49 cm FS 16.60% EDV (Teich) 208.50 mL TAPSE 1.35 (<1.7) ESV (Teich) 137.70 mL LV Diastology E Decel Time 123 (160-240 msec) E/A Ratio 2.32 MED A' 2.90 cm/s LAT A' 3.10 cm/s Aortic Valve REFUGIO Index 0.57 cm2/m2 AoV Peak Jerry. 134.0 (50-130 cm/s) AI PHT 377.00 ms AO Peak GR. 7.20 mmHg AO Mean GR. 3.50 (<5 mmHg) AO VTI 23.8 (18-25 cm) REFUGIO (VTI) 1.21 (2.5-4.5 cm2) Mitral Valve MV A Velocity 37.0 (40-130 cm/s) E/A Ratio 2.32 Tricuspid Valve TR P. Velocity 270.00 cm/s RAP Estimate 10.00 mmHg RVSP 39.10 mmHg Left Ventricle The left ventricle is normal size. Left ventricular systolic function is moderately to severely reduced. There is increased LV wall thickness. There is moderate to severe global hypokinesis. There is severe hypokinesis of the inferior, inferolateral, and lateral LV klein. Diastolic function is indeterminate. LVEF is 30%. Right Ventricle The right ventricle is normal size. Right ventricle is mildly to moderately hypokinetic. Atria The left atrium is mildly dilated. The right atrium is mildly dilated. There is no Doppler evidence of interatrial shunt. Aortic Valve The aortic valve is mildly thickened, cannot rule out bicuspid AV. There is no aortic valvular stenosis. Mild aortic regurgitation. Mitral Valve The mitral valve leaflets are mildly thickened. No evidence of mitral valve stenosis. Moderate mitral regurgitation. Tricuspid Valve The tricuspid valve leaflets are thin and pliable. Trace tricuspid regurgitation. There is insufficient TR jet to estimate RVSP. Pulmonic Valve The pulmonary valve is normal in structure. Trace pulmonic regurgitation. Great Vessels The aortic root is normal in size. The ascending aorta is normal in size. IVC is normal in size and collapses >50% with inspiration. Pericardium There is no pericardial effusion. Other Information Study Quality: Fair Conclusion Moderate to severe reduction in LV systolic function (LVEF 30%). Severe hypokinesis of the inferior, inferolateral, and lateral LV klein. Right ventricle is mildly to moderately hypokinetic. Biatrial dilation. Moderate MR. AV mildly thickened, cannot rule out bicuspid AV (anatomic vs. functional). Mild AI. Electronically signed by : Solange Alves MD 06/11/2024 12:03:39
== END 2024-06-11 23:59 | disposition home or self-care (01) ==
LOC: RT 10:21
PROVIDERS: PCP Family Medicine; Visit Provider Internal Medicine
DX: I34.0 Nonrheumatic mitral (valve) insufficiency; I42.8 Other cardiomyopathies
CPT/HCPCS: 93306